=== PATIENT | female | born 1975 | race Caucasian/White ===

== ENCOUNTER 2018-06-07 19:11 | Emergency (ER) | payer OTHER, MEDICAID, SELFPAY ==
[2018-06-07 20:16] VITALS: BP 141/84; PULSE 103; RESP 16; TEMP 36.8; O2SAT 98; BMI 24.7
--- NOTE | 2018-06-07 20:38 | DI.RAD.S_ITS ---
PROCEDURE: XR ACUTE ABDOMEN SERIES INDICATIONS: Abdominal pain TECHNIQUE: One view chest and two views of the abdomen were acquired. COMPARISON: None. FINDINGS: Surgical changes and devices: None. Chest: Lungs are clear. Heart size is normal. No pleural effusions. No pneumoperitoneum. Abdomen: Bowel gas pattern is normal. Mild fecal stasis in the colon is seen. No suspicious calcifications. Visualized solid organ contours appear normal. Bones: No suspicious bony lesions. IMPRESSION: Suggestion of mild constipation. No bowel structure no gross free air. No acute pulmonary pathology. Dictated by: Raffaele Pina M.D. on 06/07/2018 at 21:07 Approved by: Raffaele Pina M.D. on 06/07/2018 at 21:07
[2018-06-07 21:02] LABS: Bacteria Urine None Seen
[2018-06-07 21:23] LABS: Add Manual Diff / Slide Review NO; Basophils Percent Auto 0.3 % (0-2); Eosinophils Percent Auto 4.2 % (2-4); Hematocrit 36.6 % (36-46); Hemoglobin 12.8 g/dL (12.0-16.0); Lymphocytes Percent Auto 17.6 % (25-40); Mean Corpuscular HGB Conc 35.1 % (30-36); Mean Corpuscular Hemoglobin 30.1 PG (26-34); Mean Corpuscular Volume 85.8 fL (80-100); Monocytes Percent Auto 7.3 % (3-14); Neutrophils Absolute Auto 6100 /uL (3000-5900); Neutrophils Percent Auto 70.6 % (50-75); Platelet Count 223 X10^3/uL (150-400); Red Blood Cell Count 4.26 X10^6/uL (4.0-5.2); Red Cell Distribution Width 12.6 % (11.6-14.8); White Blood Cell Count 8.6 X10^3/uL (4.5-11.0)
[2018-06-07 21:23] LABS: Culture Indicated Urine Cult Not Indicated; RBC Urine 1-5/HPF (0-5/HPF); Squamous Epithelial Cell Urine 1-5 /HPF; WBC Urine 0-1/HPF (0-5/HPF)
[2018-06-07 21:33] VITALS: BP 135/83; PULSE 84; RESP 16; O2SAT 98
[2018-06-07 21:37] LABS: Alanine Aminotransferase 22 IU/L (9-52); Albumin 3.9 g/dL (3.5-5.0); Albumin Globulin Ratio 1.4 (1.0-2.8); Alkaline Phosphatase 62 U/L (38-126); Aspartate Aminotransferase 20 IU/L (14-36); BUN Creatinine Ratio 21.7 (6-22); Bilirubin Total 0.2 mg/dL (0.2-1.3); Blood Urea Nitrogen 13 mg/dL (7-17); Calcium 8.9 mg/dL (8.4-10.2); Carbon Dioxide 28 mmol/L (22-32); Chloride 104 mmol/L (98-107); Estimated Glomerular Filt Rate > 60.0 mL/min (>60); Globulin 2.8 g/dL (1.7-4.1); Glucose 103 mg/dL (70-100); HEMOLYSIS < 15 (0-50); Lipase 98 U/L (23-300); Potassium 3.6 mmol/L (3.4-5.1); Sodium 142 mmol/L (137-145); Total Protein 6.7 g/dL (6.3-8.2)
[2018-06-07] MEDS: SODIUM CHLORIDE 0.9% 1,000 ML 150 ML IV (21:54)
--- NOTE | 2018-06-07 21:56 | DI.CT.S_ITS ---
PROCEDURE: CT ABDOMEN PELVIS W CON INDICATIONS: abdominal pain, vomiting, decreased BM TECHNIQUE: After the administration of intravenous contrast, 5 mm thick sections acquired from the diaphragm to the symphysis. 5 mm coronal and sagittal reformats were acquired. For radiation dose reduction, the following was used: automated exposure control, adjustment of mA and/or kV according to patient size. COMPARISON: [facility], CR, XR ACUTE ABDOMEN SERIES, 06/07/2018, 20:17. FINDINGS: Image quality: Excellent. ABDOMEN: Lung bases: Lung bases are clear. Heart size is normal. Solid organs: Liver is normal in size and enhancement but there is prominent fatty infiltration throughout the liver. Gallbladder appears normal. Biliary system is non dilated. Pancreas enhances normally. Spleen is normal in size and enhancement. No adrenal nodules. Kidneys demonstrate normal size and enhancement, without hydronephrosis. Peritoneum and bowel: Bowel loops demonstrate normal wall thickness and caliber. No free fluid or air. Nodes and vessels: No retroperitoneal or mesenteric adenopathy by size criteria. Aorta and inferior vena cava are normal in size. Miscellaneous: No ventral hernias. PELVIS: Genitourinary: Bladder wall thickness is normal. Miscellaneous: No inguinal hernias or adenopathy. Bones: No suspicious bony lesions. No vertebral body compression fractures. IMPRESSION: Prominent fatty infiltration throughout the liver, no acute disease identified. Dictated by: Pedrito Verduzco M.D. on 06/08/2018 at 9:19 Approved by: Pedrito Verduzco M.D. on 06/08/2018 at 9:22
[2018-06-07 22:30] VITALS: BP 133/90; PULSE 83; RESP 16; O2SAT 99
[2018-06-07] MEDS: SUMAtriptan 6 MG/0.5 ML VIAL SUBCUT (22:48)
[2018-06-07] MEDS: ONDANSETRON 4 MG ODT PREPACK 1 BOTTLE MISC (23:25)
[2018-06-07 23:45] VITALS: BP 128/76; PULSE 72; RESP 16; O2SAT 99
--- NOTE | 2018-06-08 06:49 | ED_ITS ---
HPI - Abdominal Pain General Chief Complaint: Abdominal Pain Stated Complaint: ABD PAIN Time Seen by Provider: 06/07/18 20:35 Source: patient Mode of arrival: ambulatory Limitations: no limitations History of Present Illness HPI narrative: 42-year-old female with long history of chronic abdominal pain and prior diagnosis of irritable bowel syndrome presents to the emergency department at the request of her primary care provider for the evaluation of episodes of alternating constipation and diarrhea and epigastric discomfort for the past month or so. She is nauseated but denies persistent vomiting. She denies any chills. There seems to be no pattern to the swings of her bowel change. She denies recent antibiotics, international travel, or bad food exposure. MD complaint: abdominal pain Onset (ago): month(s) Pain Consistency: intermittent Location: diffuse Quality: cramping Radiation: none Migration to: no migration Relieving factors: nothing Associated symptoms: nausea, diarrhea and constipation Related Data Home Medications Medication Instructions Recorded Confirmed gabapentin [Neurontin] 300 mg PO BID #0 05/14/17 duloxetine 40 mg capsule,delayed 40 mg PO DAILY 05/09/18 05/09/18 release sumatriptan succinate [Imitrex] 100 mg PO PRN PRN 06/07/18 Previous Rx's Medication Instructions Recorded metronidazole [Metrogel Vaginal] 0.75 % VAGINAL BID #1 gm 11/01/16 estradiol [Estrace] 1 gm VAGINAL 2XWK #1 box 12/28/16 lidocaine HCl 1 jacob TOPICAL SEE INSTRUCTIONS #30 02/12/17 ml clobetasol 0 TOPICAL BID #1 tube 04/10/17 suvorexant [Belsomra] 20 mg PO HS #90 tab 05/25/17 estradiol 2 mg tablet 1 mg PO DAILY #45 tab 05/09/18 CMP Testosterone See Label Instructions .ROUTE 05/23/18 .COMPLEX #15 ml estradiol 2 mg tablet 2 mg PO QDAY #30 tab 05/23/18 Allergies Allergy/AdvReac Type Severity Reaction Status Date / Time No Known Drug Allergies Allergy Mild Verified 06/07/18 20:22 ENVIRONMENTAL Allergy Intermediate SNEEZE, Uncoded 05/09/18 12:17 HIVES CATS AdvReac Unknown SNEEZE Uncoded 05/09/18 12:17 TREE FRUIT AdvReac Unknown ITCHY Uncoded 05/09/18 12:17 THROAT,EARS, HIVES Review of Systems Review of Systems All systems reviewed & are unremarkable except as noted in HPI and below Constitutional Denies chills, Denies fever(s), Denies lethargy and Denies weakness Eyes Denies change in vision, Denies eye discharge, Denies irritation and Denies loss of vision ENT Ears, Nose, Mouth, and Throat: Denies change in voice, Denies neck pain and Denies sore throat Cardiovascular Denies chest pain, Denies irregular heart rhythm, Denies lightheadedness, Denies palpitations, Denies dyspnea, Denies dyspnea on exertion and Denies orthopnea Respiratory Denies cough, Denies dyspnea, Denies dyspnea on exertion and Denies wheezing Gastrointestinal Gastrointestinal: Reports abdominal pain, Reports change in bowel habits, Reports cramping, Reports diarrhea, Reports nausea and Denies vomiting Genitourinary Denies hematuria, Denies flank pain, Denies urinary incontinence and Denies urinary urgency Musculoskeletal Denies neck pain Integumentary/Breasts Denies pruritus, Denies erythema, Denies rash and Denies wounds Neurologic Denies confusion, Denies loss of vision and Denies weakness Psychiatric Denies anxiety, Denies confusion, Denies depression, Denies homicidal ideation and Denies suicidal ideation Endocrine Denies palpitations Hematologic/Lymphatic Denies easy bruising Allergic/Immunologic Denies wheezing [facility] Medical History Abnormal Pap smear of cervix (Chronic ~2002) Anxiety (Chronic ~2011) Chronic back pain (Chronic ~2004) Depression (Chronic ~2009) Eczema (Chronic) Endometriosis (Chronic ~2009) History of frequent headaches (Chronic) Human papillomavirus (Chronic ~2002) IBS (irritable bowel syndrome) (Chronic) Lumbar spine pain (Chronic) Migraines (Chronic) Ovarian cyst (Chronic ~2010) Painful menstrual periods (Chronic) Recurrent sinusitis (Chronic ~2007) Seasonal allergies (Chronic) Chickenpox (Resolved ~1975) Surgical History History of nasal surgery (Resolved ~2015) Anesthesia (Inactive) Status post hysterectomy with oophorectomy (08/21/16) Status post laparoscopy (~2002) Family History Father Mental health problem Staph infection Grandmother Diabetes mellitus Heart disease Essential hypertension Mother Age: 73 Hypertension Mental health problem Grandfather No problems noted. Social History Smoking Status: Current some day smoker Exam Narrative Exam Narrative: GENERAL: This is a well-nourished, well-developed patient, in mild distress. HEAD: Atraumatic. Normocephalic. No temporal or scalp tenderness. EYES: Pupils equal round and reactive. Extraocular motions intact. No scleral icterus. No injection or drainage. ENT: Nose without bleeding, purulent drainage or septal hematoma. Throat without erythema, tonsillar hypertrophy or exudate. Uvula midline. Airway patent. NECK: Trachea midline. No JVD or lymphadenopathy. Supple, nontender, no meningeal signs. CARDIOVASCULAR: Regular rate and rhythm without murmurs, gallops, or rubs. RESPIRATORY: Clear to auscultation. Breath sounds equal bilaterally. No wheezes , rales, or rhonchi. GASTROINTESTINAL: Abdomen soft, generalized tenderness, nondistended. No hepato- splenomegaly, or palpable masses. No guarding. EXTREMITIES: No clubbing, cyanosis, or edema. No joint tenderness, effusion, or edema noted. BACK: Nontender without deformity or crepitance. No flank tenderness. NEURO: AOx3. SKIN: No rash or erythema. Initial Vital Signs Initial Vital Signs: Vital Signs Temperature 98.3 F 06/07/18 20:16 Pulse Rate 103 H 06/07/18 20:16 Respiratory Rate 16 06/07/18 20:16 Blood Pressure 141/84 H 06/07/18 20:16 Pulse Oximetry 98 06/07/18 20:16 Course Orders Ordered: Discontinued Medications Sodium Chloride (Normal Saline 0.9%) 1,000 mls @ 150 mls/hr IV CONT LIAN Last Infusion: 06/07/18 23:41 Dose: 0 mls/hr Admin: 06/07/18 21:54 Dose: 150 mls/hr Ondansetron HCl (Zofran Odt Prepack) 1 bottle MISC SEEINSTR ONE Stop: 06/07/18 22:58 Last Admin: 06/07/18 23:25 Dose: 1 bottle Sumatriptan Succinate (Imitrex) 6 mg SUBCUT NOW ONE Stop: 06/07/18 22:20 Last Admin: 06/07/18 22:48 Dose: 6 mg Vital Signs - 8 hr 06/07/18 23:45 Pulse Rate 72 Respiratory Rate 16 Blood Pressure 128/76 H Pulse Oximetry 99 MDM - Abdominal Pain Differential Diagnosis Differential diagnosis: Likely abdominal pain, acute appendicitis, calculus of kidney, constipation, diverticulitis, endometriosis, gastroenteritis, pancreatitis and small bowel obstruction Medical Records Attestation: I reviewed the patient's medical records. Lab Data Attestation: I reviewed the patient's lab results. Result diagrams: 06/07/18 21:05 06/07/18 20:37 Lab Results 06/07/18 06/07/18 06/07/18 Range/Units 20:30 20:37 21:05 WBC 8.6 (4.5-11.0) X10^3/uL RBC 4.26 (4.0-5.2) X10^6/uL Hgb 12.8 (12.0-16.0) g/dL Hct 36.6 (36-46) % MCV 85.8 (80-100) fL MCH 30.1 (26-34) PG MCHC 35.1 (30-36) % RDW 12.6 (11.6-14.8) % Plt Count 223 (150-400) X10^3/uL Neut % (Auto) 70.6 (50-75) % Lymph % (Auto) 17.6 L (25-40) % Mobile % (Auto) 7.3 (3-14) % Eos % (Auto) 4.2 H (2-4) % Baso % (Auto) 0.3 (0-2) % Neut # (Auto) 6100 H (7252-4600) /uL Sodium 142 (137-145) mmol/L Potassium 3.6 (3.4-5.1) mmol/L Chloride 104 (98-107) mmol/L Carbon Dioxide 28 (22-32) mmol/L BUN 13 (7-17) mg/dL Creatinine 0.60 (0.52-1.04) mg/dL Estimated GFR > 60.0 (>60) mL/min BUN/Creatinine Ratio 21.7 (6-22) Glucose 103 H (70-100) mg/dL Calcium 8.9 (8.4-10.2) mg/dL Total Bilirubin 0.2 (0.2-1.3) mg/dL AST 20 (14-36) IU/L ALT 22 (9-52) IU/L Alkaline Phosphatase 62 (38-126) U/L Total Protein 6.7 (6.3-8.2) g/dL Albumin 3.9 (3.5-5.0) g/dL Globulin 2.8 (1.7-4.1) g/dL Albumin/Globulin Ratio 1.4 (1.0-2.8) Lipase 98 (23-300) U/L Urine RBC 1-5/hpf (0-5/HPF) Urine WBC 0-1/hpf (0-5/HPF) Ur Squamous Epith Cells 1-5 /hpf Urine Bacteria None seen (None) Ur Culture Indicated? Cult not indicated Micro UA Comment Not Reportable Point of care testing: Point of Care Testing Test Results Negative Urine Dip Bedside Urine Glucose Negative Bedside Urine Bilirubin - Negative Bedside Urine Ketone - Negative Urine Specific [place] 1.020 Bedside Urine Occult Blood +/- Bedside Urine Protein - Negative Bedside Urine Urobilinogen - Negative Bedside Urine Nitrite - Negative Bedside Urine Leukocytes - Negative Esterase Imaging Data Abdominal x-ray: My impression: PROCEDURE: XR ACUTE ABDOMEN SERIES INDICATIONS: Abdominal pain TECHNIQUE: One view chest and two views of the abdomen were acquired. COMPARISON: None. FINDINGS: Surgical changes and devices: None. Chest: Lungs are clear. Heart size is normal. No pleural effusions. No pneumoperitoneum. Abdomen: Bowel gas pattern is normal. Mild fecal stasis in the colon is seen. No suspicious calcifications. Visualized solid organ contours appear normal. Bones: No suspicious bony lesions. IMPRESSION: Suggestion of mild constipation. No bowel structure no gross free air. No acute pulmonary pathology. Dictated by: Raffaele Pina M.D. on 06/07/2018 at 21:07 Approved by: Raffaele Pina M.D. on 06/07/2018 at 21:07 CT scan - abdomen: Radiologist's impression: NAP Discharge Plan Departure Patient Disposition: Home Clinical Impression: Abdominal pain Discharge Date/Time: 06/07/18 23:46 Interventions: ED Discharge Assessment Last Done: 06/07/18 23:45 Instructions: DI for Viral Gastroenteritis -- Adult, DI for Abdominal Pain- Adult Activity Restrictions/Additional Instructions: 1. Drink plenty of fluids with frequent small sips. 2. For the next 24 hours a clear liquid diet is advised. After that please employ a brat diet which would include bananas, rice, apples, toast. 3. Please take medications as directed. 4. Please follow-up with your doctor in the next 1-2 days. Call the office for an appointment. 5. Please return to the emergency Department for any worsening or persistent symptoms, such as increasing pain or fever. Prescriptions: No Action metronidazole [Metrogel Vaginal] 0.75 % gel 0.75 % Vaginal BID Qty: 1 RF: 2 estradiol [Estrace] 0.01 % cream 1 gm Vaginal 2XWK Qty: 1 RF: 3 lidocaine HCl 30 ML jelly 1 jacob Topical SEE INSTRUCTIONS Qty: 30 RF: 2 clobetasol 0.05 % ointment Topical BID Qty: 1 RF: 1 gabapentin [Neurontin] 300 MG capsule 300 mg PO BID Qty: 0 RF: 0 suvorexant [Belsomra] 20 MG tablet 20 mg PO HS Qty: 90 RF: 0 estradiol 2 mg tablet 2 mg PO QDAY Qty: 30 RF: 9 CMP Testosterone See Label Instructions .ROUTE .COMPLEX Qty: 15 RF: 5 duloxetine 40 mg capsule,delayed release(DR/EC) 40 mg PO DAILY RF: 0 estradiol 2 mg tablet 1 mg PO DAILY Qty: 45 RF: 3 sumatriptan succinate [Imitrex] 100 MG tablet 100 mg PO PRN PRN (Reason: Headache) RF: 0
== END 2018-06-07 23:46 | disposition home or self-care (01) ==
PROVIDERS: Emergency Provider Emergency Medicine
DX: R10.9 Unspecified abdominal pain (principal)
CPT/HCPCS: 36591; 74022; 74177; 80053; 81003; 81015; 81025; 83690; 85025; 96360; 96361; 99283; 99285; J3030; Q9967

== ENCOUNTER 2021-01-07 11:58 | Emergency (ER) | payer OTHER, MEDICAID, SELFPAY ==
[2021-01-07 12:01] VITALS: BP 125/71; PULSE 70; RESP 14; TEMP 36.5; O2SAT 98
--- NOTE | 2021-01-07 12:06 | DI.RAD.S_ITS ---
PROCEDURE: XR FINGER LT MIN 2V INDICATIONS: continued pain after injury 4 wks ago TECHNIQUE: AP hand, 2 views of the middle finger(s) acquired. COMPARISON: None. FINDINGS: Bones: No fractures or dislocations. No suspicious bony lesions. Soft tissues: No suspicious soft tissue calcifications. IMPRESSION: Normal left hand and middle finger. Dictated by: John Cardoso M.D. on 01/07/2021 at 12:19 Approved by: John Cardoso M.D. on 01/07/2021 at 12:20
--- NOTE | 2021-01-07 14:42 | PC.NURSE ---
limited ROM, unable to bend. Pain with movement. Fall over month ago. No improvement
--- NOTE | 2021-01-07 14:54 | ED_ITS ---
HPI - Extremity Injury (Upper) <IBIS Varela - Last Filed: 01/07/21 21:54> General Chief Complaint: Extremity Injury, Upper Stated Complaint: injured middle finger left hand Time Seen by Provider: 01/07/21 14:07 Source: patient Mode of arrival: Ambulatory Limitations: no limitations History of Present Illness HPI narrative: This is a 45-year-old female, former smoker, who has no known contributory medical history presents to ED with chief complain of painful left, non dominant hand, long finger PIP after she fell 4 weeks ago. Patient could not recall how she injured the affected hand whether she had hyper extended or hyperflexed. She has been using cool pack, ibuprofen, francine-tape for home treatment. 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 Pain increases with flexion not as much as extension. Patient is a requesting a referral to orthopedist/hand surgeon. Patient has established care at [facility] with Dr. Mascorro for back pain. Related Data Home Medications Medication Instructions Recorded Confirmed sumatriptan succinate [Imitrex] 100 mg PO PRN PRN 06/07/18 12/15/19 Previous Rx's Medication Instructions Recorded sumatriptan succinate 100 mg tablet 100 mg PO ONCE #10 tab MDD 200 mg 02/12/19 sumatriptan succinate 100 mg tablet See Rx Instructions PO .COMPLEX 05/20/19 #10 tab galcanezumab-gnlm 120 mg/mL 120 mg SUBCUT QMONTH #1 ml 07/29/19 subcutaneous pen injector galcanezumab-gnlm 120 mg/mL 120 mg SUBCUT QMONTH #1 ml 12/15/19 subcutaneous pen injector estradiol 2 mg tablet 1 mg PO DAILY #45 tab 04/16/20 Allergies Allergy/AdvReac Type Severity Reaction Status Date / Time No Known Drug Allergies Allergy Mild Verified 01/07/21 12:06 ENVIRONMENTAL Allergy Intermediate SNEEZE, Uncoded 12/15/19 14:25 HIVES CATS AdvReac Unknown SNEEZE Uncoded 12/15/19 14:25 TREE FRUIT AdvReac Unknown ITCHY Uncoded 12/15/19 14:25 THROAT,EARS, HIVES Review of Systems <IBIS Varela - Last Filed: 01/07/21 21:54> Review of Systems Narrative: General: Denies fever, chills, fatigue, malaise, sweats. Respiratory: Denies dyspnea, cough, wheezing, hemoptysis, sputum. Cardiovascular: Denies chest pain, palpitations, orthopnea, edema. Gastrointestinal: Denies nausea, vomiting, abdominal pain, diarrhea, constipat ion, melena. : Denies dysuria, frequency, incontinence, hematuria, urinary retention. Musculoskeletal: See HPI Skin: Denies rash, skin lesions, or other. Patient History <IBIS Varela - Last Filed: 01/07/21 21:54> Medical History (Updated 01/07/21 @ 15:01 by IBIS Varela) Abnormal Pap smear of cervix (~2002) Anxiety (~2011) Chickenpox (~1975) Chronic back pain (~2004) Depression (~2009) Eczema Endometriosis (~2009) History of frequent headaches Human papillomavirus (~2002) IBS (irritable bowel syndrome) Lumbar spine pain Migraines Ovarian cyst (~2010) Painful menstrual periods Recurrent sinusitis (~2007) Seasonal allergies Surgical History Anesthesia History of nasal surgery (~2015) Status post hysterectomy with oophorectomy (08/21/16) Status post laparoscopy (~2002) Family History Father Mental health problem Staph infection Grandmother Diabetes mellitus Heart disease Essential hypertension Mother Age: 76 Hypertension Mental health problem Grandfather No problems noted. Social History Smoking Status: Former smoker Smoking Status: Former smoker alcohol intake frequency: 0-2 drinks per day Substance Use Type: does not use Exam <IBIS Varela - Last Filed: 01/07/21 21:54> Narrative Exam Narrative: General appearance: well developed, well nourished, in no acute distress. Head: normocephalic, atraumatic, no scalp lesions, non-tender. ENT: Hearing grossly intact. Airway patent. Neck/Thyroid: neck supple, full range of motion, no visible masses or meningeal signs. No JVD, non-tender without lymphadenopathy. Skin: no suspicious rashes, lesions over visible areas. Warm and dry and appropriate color for ethnicity. Heart: no clubbing, no cyanosis, no edema. Lungs: Breathing even and unlabored. No stridor. No accessory muscles used. Able to speak in full sentences. Chest: normal shape and expansion. Abdomen: non-obese, non-distended. Neurologic: alert and oriented. Cognitive exam, DREDGE OR BARGE SHORE HAND and PNS grossly intact on informal exam. Psych: good eye contact, normal affect. Initial Vital Signs Initial Vital Signs: Vital Signs Temperature 97.7 F 01/07/21 12:01 Pulse Rate 70 01/07/21 12:01 Respiratory Rate 14 01/07/21 12:01 Blood Pressure 125/71 01/07/21 12:01 Pulse Oximetry 98 01/07/21 12:01 Extrem Left upper extremity: wrist Details: normal to inspection; no tenderness and no swelling and hand Details: abnormal to inspection, normal capillary refill, neuromotor exam abnormal (pain with flexion of a long finger), neurosensory exam normal, vascular exam Details: radial pulse present and swelling Location: of the 3rd digit; no abrasions, no lacerations, no ecchymosis and no crepitus <Joann Estrada DO - Last Filed: 01/08/21 07:39> Initial Vital Signs Initial Vital Signs: Vital Signs Temperature 97.7 F 01/07/21 12:01 Pulse Rate 70 01/07/21 12:01 Respiratory Rate 14 01/07/21 12:01 Blood Pressure 125/71 01/07/21 12:01 Pulse Oximetry 98 01/07/21 12:01 Scores <IBIS Varela - Last Filed: 01/07/21 21:54> GCS [place] coma scale eye opening: Spontaneous [place] coma scale verbal response: Orientated Ced[place] coma scale motor response: Obey commands [place] coma scale total score: 15 Course <IBIS Varela - Last Filed: 01/07/21 21:54> Orders Ordered: ED Orders 01/07/21 12:06 XR finger LT min 2V Stat Vital Signs Vital signs: Vital Signs - 8 hr 01/07/21 15:12 Pulse Rate 75 Respiratory Rate 20 Blood Pressure 117/77 Pulse Oximetry 97 <Joann Estrada DO - Last Filed: 01/08/21 07:39> Orders Ordered: ED Orders 01/07/21 12:06 XR finger LT min 2V Stat Vital Signs Vital signs: Vital Signs - 8 hr 01/07/21 15:12 Pulse Rate 75 Respiratory Rate 20 Blood Pressure 117/77 Pulse Oximetry 97 [facility] - Extremity Injury (Upper) <IBIS Varela - Last Filed: 01/07/21 21:54> Differential Diagnosis Differential diagnosis: Likely finger sprain and other (Finger fracture, ligamentous/tendon injury of finger) Medical Records Attestation: I reviewed the patient's medical records. Imaging Data XR-Finger LT: Radiologist's Impression: [address] [id number] ReportSigned Patient: Milana Akbar AMR#: [id number]: 1975Acct:[id number]/Sex: 45 / FDate of Service: 01/07/21Loc: EDAccession Number: [id number] Procedure: XR finger LT min 2V Ordering Provider: Joann Estrada D.O. PROCEDURE: XR FINGER LT MIN 2V INDICATIONS: continued pain after injury 4 wks ago TECHNIQUE: AP hand, 2 views of the middle finger(s) acquired. COMPARISON: None. FINDINGS: Bones: No fractures or dislocations. No suspicious bony lesions. Soft tissues: No suspicious soft tissue calcifications. IMPRESSION: Normal left hand and middle finger. Dictated by: John Cardoso M.D. on 01/07/2021 at 12:19 Approved by: John Cardoso M.D. on 01/07/2021 at 12:20 [facility] Narrative Medical decision making narrative: This is a pleasant 45-year-old female who had injured her left non dominant hand long finger 4 weeks ago when when she accidentally took a fall since then she has been having pain with flexion motion and slightly decreased strength. 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 Patient is requesting a referral to specialist for an evaluation and treatment as needed. X-ray test was negative for acute findings. Patient had slightly decreased strength with flexion against the resistance. Patient had generalized swelling to affected finger. She has intact sensation distally and with brisk cap refill. Patient has been using francine taping and [id number] ibuprofen and cool packs on affected site. I discussed RAD findings with the patient informed that patient may have severe finger sprain which is healing vs partial ligamentous or tendon injury. Informed patient that we will send a referral to [place] orth[facility]ist for further evaluation and treatment including possible occupational therapy. Return precautions discussed with patient and she verbalized understanding in agreement with the treatment plan. Discharge Plan Departure Patient Disposition: Home Clinical Impression: Finger sprain Qualifiers: Encounter type: initial encounter Finger: middle finger Sprain of finger site: interphalangeal joint Laterality: left Qualified Code(s): S63.633A - Sprain of interphalangeal joint of left middle finger, initial encounter Instructions: DI for Finger Sprain Activity Restrictions/Additional Instructions: You have been diagnosed with [left long finger sprain. X-ray test is negative for acute findings for fractures or dislocation. You have slightly weak and strength on affected finger may due to ligamentous/tendon injury or in process of healing.]. What to do: *Take your medications as directed. You can use [id number] Tylenol and or Motrin as needed for discomfort. *Follow up with your primary care provider in 2-3 days, call for an appointment. Let them know you were seen in the ED and that we asked you to be seen in follow up. Please follow-up with [facility] orthopedist hand surgeon for on evaluation. You may require of referral to occupational therapy. *Return to ED if you have any new, worsening, or concerning symptoms, such as [worsening pain, weakness/tingling/numbness to affected finger, chest pain, breathing difficulty, unable to tolerate fluids, or any acute concerns]. Prescriptions: No Action sumatriptan succinate 100 mg tablet 100 mg PO ONCE MDD 200 mg Qty: 10 RF: 0 Emgality Pen 120 mg/mL pen injector 120 mg SUBCUT QMONTH Qty: 1 RF: 12 estradiol 2 mg tablet 1 mg PO DAILY Qty: 45 RF: 0 sumatriptan succinate [Imitrex] 100 MG tablet 100 mg PO PRN PRN (Reason: Headache) RF: 0 sumatriptan succinate 100 mg tablet See Rx Instructions PO .COMPLEX Qty: 10 RF: 5 Emgality Pen 120 mg/mL pen injector 120 mg SUBCUT QMONTH Qty: 1 RF: 12 Referrals: [facility] [Provider Group] Armin Tan MD [Primary Care Provider] - <Joann Estrada DO - Last Filed: 01/08/21 07:39> Cosign ED Attending Cosignature Attestation: I was immediately available in the department for consultation. Documentation has been reviewed.
[2021-01-07 15:12] VITALS: BP 117/77; PULSE 75; RESP 20; O2SAT 97
== END 2021-01-07 15:13 | disposition home or self-care (01) ==
PROVIDERS: Emergency Provider Nurse Practitioner Family; Family Provider Nurse Practitioner Family; PCP Family Medicine
DX: S63.633A Sprain of interphalangeal joint of left middle finger, initial encounter (principal); W18.30XA Fall on same level, unspecified, initial encounter
CPT/HCPCS: 73140; 99283

== ENCOUNTER → 2021-01-21 11:22 | Outpatient (CLI) | payer OTHER, MEDICAID, SELFPAY ==
--- NOTE | 2021-01-21 | DI.MRI.S_ITS ---
PROCEDURE: MR LUMBAR SPINE WO CON INDICATIONS: Low back pain TECHNIQUE: Noncontrast sagittal T1 spin echo and T2 fast echo, sagittal STIR, axial T1 and T2 fast spin echo through the lumbar spine. In cases with scoliosis, additional coronal T2 fast spin echo may be performed. COMPARISON: [facility], MR, L-SPINE WITHOUT CONTRAST, 10/19/2015, 10:45. [facility], CR, XR LUMBAR SPINE WITH OLBIQUES PLUS FLEXION EXTENSION, 01/03/2021, 15:39. FINDINGS: Image quality: This examination is limited by involuntary motion artifact. Alignment and Curvature: There is normal bony alignment. Bone Marrow: Marrow is of normal overall signal. No acute vertebral body compression fractures. Spinal Cord: Conus medullaris terminates at the T12-L1 level. Visualized cord demonstrates normal signal and size. Paraspinous Soft Tissues: No paravertebral masses. T12-L1: Normal appearance. L1-L2: Normal appearance. L2-L3: Normal appearance. L3-L4: The disc height is well-preserved. Loss of disc signal is seen at this level. Mild disc bulge is seen, with a central disc protrusion. Moderate facet joint hypertrophy is seen. No neural foraminal narrowing is seen. Mild to moderate central canal narrowing can be seen at this level. These imaging findings have progressed compared to the prior study. L4-L5: The disc height and disc signal are relatively well preserved. Mild to moderate disc bulge is seen, which is eccentric to the right. Moderate facet joint hypertrophy is seen. Mild bilateral neural foraminal narrowing is seen. Mild central canal narrowing is seen. Compared to 2016, these degenerative changes have slightly progressed. L5-S1: Moderate to severe loss of disc height and disc signal can be seen. Moderate disc bulge is seen, which is eccentric to the right. Mild to moderate facet hypertrophy is seen. There is moderate to severe left-sided and at least moderate right-sided neural foraminal narrowing seen. There is a degree of compression seen upon the exiting nerve roots, left worse than right. Mild central canal narrowing is seen. When comparison is made with the prior examination, these findings are similar. 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 Compared to 2016, the degenerative changes at L3-L4 and L4-L5 have mildly progressed. Dictated by: Ata Sosa M.D. on 01/21/2021 at 12:41 Approved by: Ata Sosa M.D. on 01/21/2021 at 12:44
== END ==
PROVIDERS: Family Provider Nurse Practitioner Family; PCP Nurse Practitioner Family; Referring Provider Physical Medicine & Rehabilitation Pain Medicine; Visit Provider Physical Medicine & Rehabilitation Pain Medicine
DX: M51.26 Other intervertebral disc displacement, lumbar region (principal); M48.061 Spinal stenosis, lumbar region without neurogenic claudication
CPT/HCPCS: 72148

== ENCOUNTER → 2023-09-21 14:00 | Outpatient (CLI) | payer OTHER, MEDICAID, SELFPAY ==
--- NOTE | 2023-09-21 | DI.MG.S_ITS ---
BILATERAL DIGITAL SCREENING MAMMOGRAM 3D/2D WITH CAD: 09/21/2023 CLINICAL: Routine screening. Baseline exam. No prior exams were available for comparison. Both breasts are heterogeneously dense, which may obscure small masses (category c / 51-75% glandular tissue). Current study was also evaluated with a Computer Aided Detection (CAD) system. No significant masses, calcifications, or other findings are seen in either breast. IMPRESSION: NEGATIVE There is no mammographic evidence of malignancy. A 1 year screening mammogram is recommended. Based on the Tyrer Cuzick model (a risk assessment model) the patient's lifetime risk is 13.0% and her 10 year risk is 2.9%. According to the ACR, ACS, and NCCN guidelines, an annual breast MRI exam along with mammogram is recommended if the patient's lifetime risk is 20% or greater. This exam was interpreted at Station ID: [id number]. NOTE: For mammograms, a report in lay terms will be sent to the patient. Approximately 15% of breast malignancies will not be visualized mammographically. In the management of a palpable breast mass, a negative mammogram must not discourage biopsy of a clinically suspicious lesion. Electronically Signed By: Sheree Salvador M.D., PH.D [email or web address]:09/22/2023 01:17:41 letter sent: Normal Exam ACR BI-RADS Category 1: Negative [id number]
== END ==
PROVIDERS: Family Provider Nurse Practitioner Family; PCP Family Medicine; Referring Provider Family Medicine; Visit Provider Family Medicine
DX: Z12.31 Encounter for screening mammogram for malignant neoplasm of breast (principal)
CPT/HCPCS: 77063; 77067

== ENCOUNTER → 2025-03-18 16:24 | Outpatient (CLI) | payer OTHER, MEDICAID, SELFPAY ==
--- NOTE | 2025-03-18 16:25 | DI.MG.S_ITS ---
MM screening mammo BI: 03/18/2025. BI-RADS: 1 CLINICAL: 49-year old female for bilateral screening mammogram. Tyrer-Cuzick lifetime risk of 7.5%. No personal or first-degree family history of breast cancer. PRIOR EXAMS 09/21/2023. MAMMOGRAPHY TECHNIQUE: 2D and 3D (tomosynthesis) digital mammographic views obtained, with additional images as needed for full coverage. Current study was also evaluated with a Computer Aided Detection (CAD) system. DENSITY C. The breasts are heterogeneously dense, which may obscure small masses. MAMMOGRAPHY FINDINGS Bilateral: No suspicious mass, asymmetry, microcalcification, or other abnormality seen. IMPRESSION: * No evidence of malignancy. RECOMMENDATIONS Bilateral * Annual screening mammography. OVERALL ASSESSMENT CATEGORY BI-RADS-1: Negative. The [employer] recommends annual screening mammography beginning at age 40 for women with average risk of breast cancer. ELECTRONICALLY SIGNED: Sheree Salvador M.D. on 03/22/2025 at 01:46:25 PM PT Interpreting Station ID: [id number]
== END ==
LOC: MAMMO 16:24
PROVIDERS: Family Provider Nurse Practitioner Family; PCP Family Medicine; Referring Provider Family Medicine; Visit Provider Family Medicine
DX: Z12.31 Encounter for screening mammogram for malignant neoplasm of breast (principal); R92.333 Mammographic heterogeneous density, bilateral breasts
CPT/HCPCS: 77063; 77067